=== PATIENT | male | born 1955 | race Caucasian/White ===

== ENCOUNTER 2021-06-17 08:39 | Emergency (ER) | payer MEDICAID ==
[~2021-06-17] VITALS: Ht 167.6 cm; Wt 87.7 kg
[2021-06-17 08:50] VITALS: BP 113/70
[2021-06-17 08:59] VITALS: BP 113/70
--- NOTE | 2021-06-17 09:12 | NUR ---
PT AMB TO BED 2.
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
--- NOTE | 2021-06-17 10:50 | NUR ---
XRAY AT BEDSIDE
[2021-06-17 11:16] LABS: BASOPHILS % (AUTO) 0.6 % (0.0-2.0); EOSINOPHILS # (AUTO) 0.1 K/uL (0-0.4); EOSINOPHILS % (AUTO) 0.7 % (0.0-4.0); HEMATOCRIT 39.9 % (36-52); HEMOGLOBIN 13.6 g/dL (12.0-18.0); LYMPHOCYTES # (AUTO) 1.8 K/uL (2.0-11.5); LYMPHOCYTES % (AUTO) 25.4 % (20.5-51.1); MEAN CORPUSCULAR HEMOGLOBIN 31 pg (27-31); MEAN CORPUSCULAR HGB CONC 34 g/dL (33-37); MEAN CORPUSCULAR VOLUME 90.5 fL (80-94); MONOCYTES # (AUTO) 0.3 K/uL (0.8-1.0); MONOCYTES % (AUTO) 4.9 % (1.7-9.3); NEUTROPHILS # (AUTO) 4.9 K/uL (1.8-7.7); NEUTROPHILS % (AUTO) 68.4 % (42.2-75.2); PLATELET COUNT (AUTO) 201 K/uL (140-450); RED CELL DISTRIBUTION WIDTH 13.6 % (11.6-13.7); WHITE BLOOD COUNT (AUTO) 7.2 K/uL (4.8-10.8)
[2021-06-17 11:30] LABS: ALBUMIN 3.6 g/dL (3.4-5.0); ANION GAP 15.9 (8-16); CARBON DIOXIDE 23.4 mmol/L (21-32); CREATININE 0.9 mg/dL (0.6-1.3); POTASSIUM 4.3 mmol/L (3.5-5.1); TOTAL BILIRUBIN 0.3 mg/dL (0.0-1.0)
--- NOTE | 2021-06-17 12:30 | NUR ---
PATIENT RESTING IN BED, DAUGHTER AT BEDSIDE, AWAITING RESULTS. WILL CONTINUE TO MONITOR.
[2021-06-17 13:45] VITALS: BP 116/67
--- NOTE | 2021-06-17 13:45 | NUR ---
Patient discharged with v/s stable. Written and verbal after care instructions ABOUT ALCOHOL USE DISORDER AND SYNCOPE given and explained. Patient verbalized understanding. Ambulatory with steady gait. All questions addressed prior to discharge. Advised to follow up with PMD.
== END 2021-06-17 13:53 | disposition home or self-care (01) ==
LOC: MED 08:39
DX: R55 Syncope and collapse (principal); E11.9 Type 2 diabetes mellitus without complications; F17.210 Nicotine dependence, cigarettes, uncomplicated
CPT/HCPCS: 36415; 71045; 80053; 84484; 85025; 93005; 99285; Q0092

== ENCOUNTER 2021-12-01 16:39 | Emergency (ER) | payer OTHER, MEDICAID ==
[~2021-12-01] VITALS: Ht 165.1 cm; Wt 86.2 kg
[2021-12-01 16:50] VITALS: BP 123/78
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
--- NOTE | 2021-12-01 17:31 | NUR ---
RAD AT BEDSIDE
[2021-12-01] MEDS ORDERED: KETOROLAC 60 MG/2 ML VIAL IM ONE (17:45)
--- NOTE | 2021-12-01 17:46 | NUR ---
DR MCELROY AT BEDSIDE FOR EVAL
[2021-12-01] MEDS ORDERED: IBUP-2213 PO (17:52)
[2021-12-01] MEDS ORDERED: ACET-8386 PO (17:52)
--- NOTE | 2021-12-01 18:21 | NUR ---
Patient discharged with v/s stable. Written and verbal after care instructions given and explained. Patient alert, oriented and verbalized understanding of instructions. Ambulatory with steady gait. All questions addressed prior to discharge. ID band removed. Patient advised to follow up with PMD. Rx of NORCO 5-325 AND MOTRIN given. Patient educated on indication of medication including possible reaction and side effects. Opportunity to ask questions provided and answered.
== END 2021-12-01 18:21 | disposition home or self-care (01) ==
LOC: MED 16:39
DX: R07.89 Other chest pain (principal); M79.662 Pain in left lower leg; E11.9 Type 2 diabetes mellitus without complications; R00.0 Tachycardia, unspecified; V89.2XXA Person injured in unspecified motor-vehicle accident, traffic, initial encounter; Y93.89 Activity, other specified; Y92.410 Unspecified street and highway as the place of occurrence of the external cause; Y99.8 Other external cause status
CPT/HCPCS: 71045; 93005; 96372; 99283; J1885; Q0092